=== PATIENT | female | born 1935 | race Caucasian/White ===

== ENCOUNTER 2016-12-05 | Outpatient (CLI) | payer MEDICARE, OTHER | END 2016-12-05 04:28 | disposition critical access hospital (66) | CPT/HCPCS: A0425; A0427 ==

== ENCOUNTER 2016-12-05 05:06 | Emergency (ER) | payer MEDICARE, OTHER ==
[2016-12-05] MEDS ORDERED: BENZONATATE 100 MG CAPSULE PO STA (05:26)
[2016-12-05] MEDS ORDERED: DEXAMETHASONE 10 MG/ML VIAL PO STA (05:26)
[2016-12-05] MEDS ORDERED: ALBUTEROL NEB 2.5 MG/3 ML INH STA ×2 (05:26→06:26)
[2016-12-05] MEDS ORDERED: BENZONATATE 100 MG CAPSULE PO ONE (05:30)
[2016-12-05] MEDS ORDERED: CHERRY SYRUP 10 ML UDC PO ONE (05:35)
[2016-12-05] MEDS ORDERED: DEXAMETHASONE 10 MG/ML VIAL ONE (05:35)
[2016-12-05] MEDS ORDERED: ALBUTEROL NEB 2.5 MG/3 ML INH ONE ×2 (05:36→06:53)
== END 2016-12-05 07:37 | disposition home or self-care (01) ==
DX: J40 Bronchitis, not specified as acute or chronic (principal)
CPT/HCPCS: 71020; 94640; 99284; A9270; J7613

== ENCOUNTER 2017-05-10 13:01 | Outpatient (CLI) | payer MEDICARE, OTHER ==
--- NOTE | 2017-05-11 09:16 | DEXA Report ---
DEXA SCAN: 05/10/2017 CLINICAL INDICATION: Postmenopausal. TECHNIQUE: Dual energy x-ray absorptiometry (DXA) was performed on a [employer] system. Regions measured are the AP spine, femoral neck, and, if needed, forearm. COMPARISON: None. In accordance with the International Society for Clinical Densitometry (ISCD) guidelines, data from previous exams may be reanalyzed us/ ing current recommendations and techniques. This is done to allow a more accurate basis for comparison with the current study. FINDINGS: The data for the lumbar spine is as follows: REGION BMD (g/cm/cm) T-SCORE Z-SCORE L1 0.990 -1.2 0.8 L2 1.022 -1.5 0.4 L3 1.033 -1.4 0.5 L4 1.336 1.1 3.1 TOTAL 1.120 -0.5 1.4 NOTE: All evaluable vertebrae are used for classification. The data for the hip is as follows: REGION BMD (g/cm/cm) T-SCORE Z-SCORE Neck 0.706 -2.4 -0.1 TOTAL 0.728 -2.2 0.0 NOTE: The femoral neck or total proximal femur, whichever is lowest, is used for classification. IMPRESSION: THE WHO CLASSIFICATION BASED ON THE INTERNATIONAL REFERENCE STANDARD IS OSTEOPENIA. FRACTURE RISK IS INCREASED. RECOMMENDATION: Patients with diagnosis of osteoporosis or osteopenia should have regular bone mineral density assessment. For those eligible for Medicare, routine testing is allowed once every 2 years. Testing frequency can be increased for patients who have rapidly progressing disease or for those who are receiving medical therapy to restore bone mass. COMMENT: World Health Organization (WHO) definitions for osteoporosis and osteopenia: NORMAL BMD: T-score at -1.0 or higher, fracture risk is low. OSTEOPENIA BMD: T-score between -1.0 and -2.5, fracture risk is increased. OSTEOPOROSIS BMD: T-score at -2.5 or lower, fracture risk high. National Osteoporosis Foundation recommends: 1. Obtain adequate dietary calcium (at least 1200 mg per day) and vitamin D (400 -800 international units per day). 2. Participate, as appropriate, in regular weightbearing and muscle- strengthening exercise. 3. Avoid tobacco use and reduce alcohol and caffeine intake. 4. For more detailed information see the website at www.NOF.org. MTDD
== END 2017-05-10 13:02 | disposition home or self-care (01) ==
LOC: DI 13:01
PROVIDERS: ATTEND Physician Assistant Medical
DX: Z13.820 Encounter for screening for osteoporosis (principal); E55.9 Vitamin D deficiency, unspecified; M85.80 Other specified disorders of bone density and structure, unspecified site; Z78.0 Asymptomatic menopausal state
CPT/HCPCS: 77080

== ENCOUNTER 2017-09-24 11:07 | Outpatient (CLI) | payer MEDICARE, OTHER ==
[2017-09-24 18:38] LABS: EOSINOPHILS # (AUTO) 0.2 10^3/uL (0.0-0.7); EOSINOPHILS % (AUTO) 3.6 %; HGB - HEMOGLOBIN 14.3 g/dL (12.0-16.0); LYMPHOCYTES # (AUTO) 1.5 10^3/uL (1.5-3.5); LYMPHOCYTES % (AUTO) 32.1 %; MEAN CORPUSCULAR HEMOGLOBIN 31.1 pg (27.0-31.0); MEAN CORPUSCULAR HGB CONC 32.6 g/dL (32.0-36.0); MEAN CORPUSCULAR VOLUME 95.6 fL (81.0-99.0); MEAN PLATELET VOLUME 8.7 fL (7.9-10.8); MONOCYTES # (AUTO) 0.6 10^3/uL (0.0-1.0); MONOCYTES % (AUTO) 12.2 %; NEUTROPHILS # (AUTO) 2.4 10^3/uL (1.5-6.6); NEUTROPHILS % (AUTO) 51.1 %; UNCORRECTED WHITE BLOOD COUNT 4.6 x10^3/uL; WHITE BLOOD COUNT 4.6 x10^3/uL (4.8-10.8)
[2017-09-24 18:57] LABS: ALBUMIN/GLOBULIN RATIO 1.2 (1.0-2.2); BILIRUBIN,TOTAL 0.7 mg/dL (0.2-1.0); BUN - BLOOD UREA NITROGEN 21 mg/dL (6-20); CALCIUM 9.7 mg/dL (8.5-10.3); CARBON DIOXIDE - CO2 28 mmol/L (21-32); CHLORIDE 95 mmol/L (101-111); CHOL/HDL RATIO 1.7 (<4.4); CHOLESTEROL 171 mg/dL; CREATININE 0.9 mg/dL (0.4-1.0); GFR - MDRD 60 (>89); GLUCOSE 92 mg/dL (70-100); HDL CHOLESTEROL 103 mg/dL; LDL/HDL RATIO 0.6 (<4.4); POTASSIUM 4.3 mmol/L (3.5-5.0); SODIUM 133 mmol/L (135-145); TOTAL PROTEIN 7.4 g/dL (6.7-8.2); TRIGLYCERIDES 51 mg/dL; VLDL CHOLESTEROL 10 mg/dL
== END 2017-09-24 11:08 | disposition home or self-care (01) ==
LOC: LAB.F 11:07
PROVIDERS: ATTEND Family Medicine
DX: I10 Essential (primary) hypertension (principal); M85.80 Other specified disorders of bone density and structure, unspecified site; E55.9 Vitamin D deficiency, unspecified; M25.473 Effusion, unspecified ankle
CPT/HCPCS: 36415; 80053; 80061; 82306; 84443; 85025

== ENCOUNTER 2019-03-01 03:35 | Outpatient (CLI) | payer MEDICARE, OTHER | END 2019-03-01 03:36 | disposition critical access hospital (66) | LOC: EMS 03:35 | PROVIDERS: ATTEND Surgery | DX: R10.9 Unspecified abdominal pain (principal); R11.0 Nausea | CPT/HCPCS: A0425; A0427 ==

== ENCOUNTER 2019-03-01 04:16 | Inpatient (IN) | payer MEDICARE, OTHER ==
--- NOTE | 2019-03-01 04:15 | ED Physician Documentation ---
PD HPI ABD PAIN - Stated complaint Stated Complaint: ABD PAIN - History obtained from History obtained from: Patient, EMS - History of Present Illness Timing - onset: Enter time (22:00), Yesterday Timing - duration: Hours Timing - details: Gradual onset, Waxing and waning Pain level now: 5 Quality: Pain Location: LLQ (diffuse but predominantly LLQ) Radiation: Other (no radiation) Improved by: Other (no ameliorating factors) Worsened by: Other (no exacerbating factors) Associated symptoms: Nausea, Vomiting. No: Fever, Diarrhea, Constipation (last BM was yesterday, but small amount) Similar symptoms before: Has not had sx before Recently seen: Not recently seen - Additional information Additional information: BIBA, given zofran en route without significant improvement. c/o waxing and waning abdominal pain with increasing nausea and vomiting ("dry heaves", per patient) Review of Systems Constitutional: reports: Reviewed and negative Eyes: reports: Reviewed and negative Ears: reports: Reviewed and negative Nose: reports: Reviewed and negative Throat: reports: Reviewed and negative Cardiac: reports: Reviewed and negative Respiratory: reports: Reviewed and negative GI: reports: Abdominal Pain, Nausea, Vomiting. denies: Constipation, Diarrhea : denies: Dysuria, Frequency Skin: reports: Reviewed and negative Musculoskeletal: reports: Reviewed and negative Neurologic: reports: Reviewed and negative PD PAST MEDICAL HISTORY - Past Medical History Past Medical History: Yes Cardiovascular: Hypertension - Past Surgical History Past Surgical History: Yes General: Appendectomy (patient was having oophorectomy for ovarian cyst, jae shepard removed during this procedure) - Present Medications Home Medications: Ambulatory Orders Medication Instructions Recorded Confirmed Aspirin [Aspirin EC] 81 mg PO DAILY 03/01/19 03/01/19 Losartan Potassium 100 mg PO DAILY 03/01/19 03/01/19 Metoclopramide [Reglan] 10 mg PO Q6H 5 Days #20 tablet 03/01/19 Wheat Dextrin [Benefiber] 1 each PO DAILY #30 powd.pack 03/01/19 - Allergies Allergies/Adverse Reactions: Allergies Allergy/AdvReac Type Severity Reaction Status Date / Time Penicillins Allergy Unknown Verified 03/01/19 04:27 - Living Situation Living Situation: reports: With spouse/s.o. Living Arrangement: reports: At home - Social History Does the pt smoke?: No PD ED PE NORMAL - Vitals Vital signs reviewed: Yes - General General: Alert and oriented X 3, No acute distress, Well developed/nourished - Neck Neck: Supple, no meningeal sign - Cardiac Cardiac: RRR, No murmur - Respiratory Respiratory: No respiratory distress, Clear bilaterally - Abdomen Abdomen: Normal bowel sounds, Soft, Non distended, Other (mild LLQ tenderness without guarding or rebound) - Back Back: No CVA TTP - Derm Derm: Normal color, Warm and dry - Extremities Extremities: No edema - Neuro Neuro: Alert and oriented X 3 Results - Vitals Vitals: Vital Signs - 24 hr 03/01/19 03/01/19 03/01/19 04:22 04:33 05:44 Temperature 37.2 C Heart Rate 74 75 80 Respiratory 17 17 17 Rate Blood Pressure 156/89 H 138/84 H 165/94 H O2 Saturation 96 94 100 03/01/19 03/01/19 06:15 07:13 Temperature Heart Rate 97 95 Respiratory 17 Rate Blood Pressure 168/99 H 111/96 H O2 Saturation 97 94 Oxygen O2 Source Room air - Labs Labs: Laboratory Tests 03/01/19 03/01/19 03/01/19 04:45 04:45 07:00 WBC 9.7 RBC 4.31 Hgb 13.5 Hct 40.9 MCV 94.9 MCH 31.2 H MCHC 32.9 RDW 13.5 Plt Count 305 MPV 7.3 L Neut # (Auto) 8.1 H Lymph # (Auto) 0.8 L Guthrie # (Auto) 0.7 Eos # (Auto) 0.0 Baso # (Auto) 0.0 Absolute Nucleated RBC 0.01 Nucleated RBC % 0.1 Sodium 135 Potassium 4.0 Chloride 99 L Carbon Dioxide 28 Anion Gap 8.0 BUN 23 H Creatinine 0.7 Estimated GFR (MDRD) 80 L Glucose 134 H Calcium 9.5 Total Bilirubin 0.6 AST 21 ALT 12 Alkaline Phosphatase 45 Total Protein 6.5 L Albumin 3.9 Globulin 2.6 Albumin/Globulin Ratio 1.5 Lipase 50 Urine Color YELLOW Urine Clarity CLEAR Urine pH 6.[address] 1[address]010 Urine Protein NEGATIVE Urine Glucose (UA) NEGATIVE Urine Ketones NEGATIVE Urine Occult Blood NEGATIVE Urine Nitrite NEGATIVE Urine Bilirubin NEGATIVE Urine Urobilinogen 0.2 (NORMAL) Ur Leukocyte Esterase NEGATIVE Ur Microscopic Review NOT INDICATED Urine Culture Comments NOT INDICATED - Rads (name of study) CT A/P Radiology: Prelim report reviewed, See rad report PD MEDICAL DECISION MAKING - ED course Complexity details: reviewed results, re-evaluated patient, considered differential, d/w patient ED course: D/W Dr. Wilson, recommends admit to hospitalist Departure - Departure Disposition: 66 [facility] DC/Xfer Clinical Impression: Small bowel obstruction Condition: Good Discharge Date/Time: 03/01/19 09:46
[2019-03-01] MEDS ORDERED: SODIUM CHLORIDE 0.9% 500 ML IV STA (04:31)
[2019-03-01] MEDS ORDERED: ONDANSETRON 4 MG/2 ML VIAL IVP STA (04:31)
[2019-03-01] MEDS ORDERED: IOVERSOL 320 50 ML VIAL ONE (04:46)
[2019-03-01] MEDS ORDERED: IOVERSOL 320 100 ML VIAL IVP ONE ×2 (04:47→06:21)
[2019-03-01 04:53] LABS: BASOPHILS % (AUTO) 0.5 %; EOSINOPHILS % (AUTO) 0.5 %; HGB - HEMOGLOBIN 13.5 g/dL (12.0-16.0); LYMPHOCYTES # (AUTO) 0.8 10^3/uL (1.5-3.5); LYMPHOCYTES % (AUTO) 8.4 %; MEAN CORPUSCULAR HEMOGLOBIN 31.2 pg (27.0-31.0); MEAN CORPUSCULAR HGB CONC 32.9 g/dL (32.0-36.0); MEAN CORPUSCULAR VOLUME 94.9 fL (81.0-99.0); MEAN PLATELET VOLUME 7.3 fL (7.9-10.8); MONOCYTES # (AUTO) 0.7 10^3/uL (0.0-1.0); MONOCYTES % (AUTO) 6.8 %; NEUTROPHILS # (AUTO) 8.1 10^3/uL (1.5-6.6); NEUTROPHILS % (AUTO) 83.8 %; PLT - PLATELET COUNT 305 10^3/uL (130-450); RED BLOOD COUNT 4.31 10^6/uL (4.20-5.40); RED CELL DISTRIBUTION WIDTH 13.5 % (12.0-15.0); WHITE BLOOD COUNT 9.7 x10^3/uL (4.8-10.8)
[2019-03-01] MEDS ORDERED: PROMETHAZINE INJ 12.5 MG in SODIUM CHLORIDE 0.9% 50 ML IV STA ×2 (05:00→08:01)
[2019-03-01 05:04] LABS: ALBUMIN 3.9 g/dL (3.2-5.5); ALBUMIN/GLOBULIN RATIO 1.5 (1.0-2.2); BILIRUBIN,TOTAL 0.6 mg/dL (0.2-1.0); CALCIUM 9.5 mg/dL (8.5-10.3); CREATININE 0.7 mg/dL (0.4-1.0); TOTAL PROTEIN 6.5 g/dL (6.7-8.2)
[2019-03-01] MEDS ORDERED: IOVERSOL 320 50 ML VIAL PO ONE (06:25)
--- NOTE | 2019-03-01 06:39 | CT Report ---
Reason: abd. pain Procedure Date: 03/01/2019 Accession Number: [id number] / [id number] Procedure: CT - Abdomen/Pelvis W CPT Code: FULL RESULT: EXAM: CT ABDOMEN AND PELVIS EXAM DATE: 03/01/2019 06:04 AM. CLINICAL HISTORY: Abdominal pain and nausea. COMPARISONS: None. TECHNIQUE: Routine helical CT imaging was performed through the abdomen and pelvis. IV contrast: 100 ML OPTIRAY 320. Enteric contrast: Yes. Reconstructions: Coronal and sagittal. In accordance with CT protocol optimization, one or more of the following dose reduction techniques were utilized for this exam: automated exposure control, adjustment of mA and/or KV based on patient size, or use of iterative reconstructive technique. FINDINGS: Lung Bases: Bibasilar atelectasis. Mild cardiomegaly. Possible emphysema. Liver: Fatty infiltration. Gallbladder/Bile Ducts: Unremarkable. Spleen: Normal. Pancreas: Normal. Adrenal Glands: Normal. Kidneys: Normal. No masses or hydronephrosis. Peritoneal Cavity/Bowel: Small bowel obstruction. Transition appears to be in the pelvis just to the right of midline. Small amount of free fluid. No free air. Moderate stool in the colon, right greater than left. No diverticulitis. No lymphadenopathy. No evidence of appendicitis. Pelvic Organs: Normal. The bladder and visualized pelvic organs are within normal limits. Vasculature: Mild atherosclerosis. No aortic aneurysm. Bones: Osteopenia. Degenerative changes and scoliosis in the spine. Other: None. IMPRESSION: 1. Small bowel obstruction. Transition appears to be in the pelvis. 2. Small amount of free fluid. No free air. 3. No acute inflammatory process identified in the abdomen or pelvis. RADIA
[2019-03-01 07:18] LABS: BILIRUBIN,URINE NEGATIVE (NEGATIVE); GLUCOSE, URINE (UA) NEGATIVE (NEGATIVE); KETONES,URINE (UA) NEGATIVE (NEGATIVE); LEUKOCYTE ESTERASE, URINE NEGATIVE (NEGATIVE); NITRITE,URINE NEGATIVE (NEGATIVE); OCCULT BLOOD,URINE NEGATIVE (NEGATIVE); PROTEIN,URINE NEGATIVE (NEGATIVE); UROBILINOGEN,URINE 0.2 (NORMAL) E.U./dL (NORMAL)
[2019-03-01 07:19] LABS: CLARITY,URINE CLEAR (CLEAR)
[2019-03-01] MEDS ORDERED: SODIUM CHLORIDE 0.9% 1,000 ML IV STA (07:39)
[2019-03-01] MEDS ORDERED: SODIUM CHLORIDE FLUSH 0.9% 10 ML SYRINGE IVP PRN (08:38)
[2019-03-01] MEDS ORDERED: TEMAZEPAM 15 MG CAPSULE PO PRN (08:38)
--- NOTE | 2019-03-01 08:49 | HISTORY & PHYSICAL EXAMINATION ---
Chief Complaint - Chief Complaint Chief Complaint: rectal pain, nausea History of Present Illness - Admitted From Admitted From:: ED - History Obtained From Records Reviewed: yes History obtained from: patient, chart review Exam Limitations: AMS, pain medications - History of Present Illness HPI Comment/Other: Gaby Andino is a high functioning 83-year old with a past medical history of hypertension, BLE edema, ovarian cysts, thyroid duct removal, osteopenia, varicose vein stripping and short term memory loss. She presented to the ED via ambulance after developing acute onset rectal pain and LLQ pain, with nausea, and vomiting. She states that for the past several days she had only mild intermittent nausea, but continued to eat normally. She states that after having a [place] yogurt yesterday, she really noticed her nausea and woke up this morning with her symptoms listed above. Labs showed a normal WBC count of 9.7, H/H of 13.5/40.9, elevated neutrophil # of 8.1, sodium of 135, potassium of 4.0, chloride of 99, BUN of 23, creatinine of 0.7, GFR of 80, glucose of 134, with no other lab abnormalities. Vital signs showed a temp of 37.2, heart rate of 74, respiratory rate of 17, blood pressure of 156/89, and oxygen of 96% on room air. On my initial exam, she is lethargic since being treated for her acute nausea with IV phenergen, but remained a good historian. She denied bleeding, confusion, recent sick contacts, recent illness, dizziness, chest pain, a new headache, blurred vision, or a new cough. General surgery was consulted, Dr. Wilson who will give recommendations and agrees with a Gastro-graffin challenge with follow up imaging. History - Past Medical History Cardiovascular: reports: Hypertension Respiratory: reports: None Neuro: reports: None Endocrine/Autoimmune: reports: None GI: reports: None ASSURANCE ASSISTANT: reports: Ovarian cysts : reports: Nocturia, Frequency HEENT: reports: Chronic vision loss, Chronic hearing loss Psych: reports: None Musculoskeletal: reports: Osteoarthritis, Scoliosis Derm: reports: None, Other MRSA Hx?: No Other Past Medical History: Hyponatremia - Past Surgical History General: reports: Cholecystectomy, Appendectomy (patient was having oophorectomy for ovarian cyst, appendix removed during this procedure) Ortho: reports: Other /ASSURANCE ASSISTANT: reports: Oophrectomy, Other Other past surgical history: Bunionectomy, lipomectomy, vein stripping, ovarian cyst removals, thyroglossal duct removal - Family & Social History Family History: Mother: , Cancer (colon cancer- Mother), Father: , Brother: , CAD Family History Comment/Other: Mother- colon CA, brother with CAD, and father of old age after having pneumonia. Living arrangement: At home Living Situation: With spouse/s.o. Social History Notes: The patient is and lives with her , Anupam who is no longer allowed to drive since suffering a stroke. They live independently in [place]. She is his sole foster care therapist. They had 3 children, only one living. Their oldest son lives in [place], [place]. The patient is a retired payroll accountant, who lived in [place], but in [place] since 2008. She enjoys housework, yard work and still drives. She denies the use of tobacco or illicit drugs. She admits to drinking 2 glasses of wine per day. She admits to the use of essential oils, peppermint oils and the downward dog position for most of her medical aliments. She wishes to be a FULL code. - Substance History Use: Uses substance without health or social issues: NONE Abuse: Recurrent use of substance despite neg consequences: NONE Dependence: Experiences withdrawal or developed tolerances: NONE - POLST Patient has POLST: No POLST Status: Full Code Meds/Allgy - Home Medications Home Medications: Ambulatory Orders Medication Instructions Recorded Confirmed Aspirin [Aspirin EC] 81 mg PO DAILY 03/01/19 03/01/19 Losartan Potassium 100 mg PO DAILY 03/01/19 03/01/19 - Allergies Allergies/Adverse Reactions: Allergies Allergy/AdvReac Type Severity Reaction Status Date / Time Penicillins Allergy Unknown Verified 03/01/19 04:27 Review of Systems - Constitutional Constitutional: reports: Fatigue, Weakness, Poor appetite - Eyes Eyes: reports: Vision loss - Cardiovascular Cariovascular: reports: Lightheadedness, Decr. exercise tolerance - Gastrointestinal Gastrointestinal: reports: Abdominal pain, Abdominal distention, Change in bowel habits, Nausea, Vomiting, Reflux/heartburn, Bloating, Poor appetite - Genitourinary Genitourinary: reports: Frequency, Nocturia - Musculoskeletal Musculoskeletal: reports: Muscle aches - Integumentary Integumentary: reports: Dryness - Neurological Neurological: reports: General weakness, Memory problems, Pre-existing deficit - All Other Systems All Other Systems: reports: Reviewed and negative Prior Level of Functionality: Independent, takes care of her profoundly demented . The patient does not use a walker, or a cane, no recent falls. Exam - Vital Signs Reviewed Vital Signs: Yes Vital Signs: Vital Signs x48h Temp Pulse Resp BP Pulse Ox 03/01/19 07:13 95 111/96 H 94 03/01/19 06:15 97 17 168/99 H 97 03/01/19 05:44 80 17 165/94 H 100 03/01/19 04:33 75 17 138/84 H 94 03/01/19 04:22 37.2 C 74 17 156/89 H 96 - Physical Exam General Appearance: positive: Mild distress, Lethargic Eyes Bilateral: positive: PERRL ENT: positive: Pharynx nml, Dry mucous membranes Neck: positive: Thyroid nml, No JVD, Trachea midline Respiratory: positive: Chest non-tender, No respiratory distress, Other (bilateral crackles in low lobes) Cardiovascular: positive: No gallop, Irregularly irregular, Systolic murmur, Decreased pulse(s) Peripheral Pulses: positive: 1+ Abdomen: positive: Tenderness, Guarding, Abnml bowel sounds Back: positive: Nml inspection Skin: positive: Color nml, No rash, Warm, Dry Extremities: positive: Non-tender, Full ROM, Pedal edema (trace), Joint swelling Neurologic/Psychiatric: positive: Oriented x3, CN's nml (2-12), Motor nml, Sensation nml, Mood/affect nml Reflexes: Bicep (R): 3+, Bicep (L): 3+ Conclusion/Plan - Problem List (1) Small bowel obstruction Conclusion/Plan: - Imaging in the ED confirms a SBO - IVFs, anti-emetics, and bowel rest - Administer gastro-graffin x1 - General surgery consult Plan: Continue cares, clear liquid diet, evaluate follow up imaging (2) Intractable nausea and vomiting Conclusion/Plan: - Continued nausea and dry heaves on initial exam Plan: Continue with zofran, compazine if needed (3) Hypertension Conclusion/Plan: - Patient takes losartan at home - Blood pressures elevated at 150/80's, presumed due to pain Plan: Continue to monitor Qualifiers: Hypertension type: essential hypertension Qualified Code(s): I10 - Anny huber (primary) hypertension (4) Medical non-compliance Conclusion/Plan: - Patient states that she mostly uses essential oils, and the down haq dog yoga position to cure her medical aliments - Prescribed Losartan at home, but states that sometimes, she takes "breaks" from using it Plan: Continue to encourage patient to care for herself, take medications as prescribed (5) Rectal pain Conclusion/Plan: - Primary complaint on exam - NO external hemorrhoids appreciated Plan: Continue to treat acute illness - Lab Results Lab results reviewed: Yes Fish Bones: 03/01/19 04:45 03/01/19 04:45 - Diagnostic Imaging Results Diagnostic Imaging Results: positive: Prelim report reviewed Diagnostic Imaging Results Comments: EXAM: CT ABDOMEN AND PELVIS EXAM DATE: 03/01/2019 06:04 AM FINDINGS: Lung Bases: Bibasilar atelectasis. Mild cardiomegaly. Possible emphysema. Liver: Fatty infiltration. Gallbladder/Bile Ducts: Unremarkable. Spleen: Normal. Pancreas: Normal. Adrenal Glands: Normal. Kidneys: Normal. No masses or hydronephrosis. Peritoneal Cavity/Bowel: Small bowel obstruction. Transition appears to be in the pelvis just to the right of midline. Small amount of free fluid. No free air. Moderate stool in the colon, right greater than left. No diverticulitis. No lymphadenopathy. No evidence of appendicitis. Pelvic Organs: Normal. The bladder and visualized pelvic organs are within normal limits. Vasculature: Mild atherosclerosis. No aortic aneurysm. Bones: Osteopenia. Degenerative changes and scoliosis in the spine. Other: None. IMPRESSION: 1. Small bowel obstruction. Transition appears to be in the pelvis. 2. Small amount of free fluid. No free air. 3. No acute inflammatory process identified in the abdomen or pelvis. Core Measures - Anticipated LOS I expect patient to be DC'd or transferred within 96 hours.: Yes - DVT/VTE - Prophylaxis VTE/DVT Device ordered at admit?: Yes VTE/DVT Prophylaxis med ordered at admit?: Yes - Stroke - Rehab Assessment Rehab services assessment to be ordered?: No Not Ordered - Medical Reason: Contraindicated - AMI - Statin at Admit Aspirin Prescribed on Admit: No Not Ordered - Medical Reason: Contraindicated
[2019-03-01] MEDS ORDERED: DIATR MEGLU/DIATRIZOATE SODIUM 120 ML BOTTLE PO ONE (08:51)
[2019-03-01] MEDS ORDERED: BACITRACIN OINT TOP ONE (08:59)
[2019-03-01] MEDS ORDERED: SODIUM CHLORIDE 0.9% 1,000 ML IV SCH (09:00)
[2019-03-01] MEDS ORDERED: ENOXAPARIN 40 MG/0.4 ML SYRINGE SUBQ SCH (09:00)
[2019-03-01] MEDS ORDERED: POLYETHYLENE GLYCOL 3350 17 GM PACKET PO SCH (09:00)
[2019-03-01] MEDS ORDERED: ONDANSETRON 4 MG/2 ML VIAL IVP PRN (09:16)
[2019-03-01] MEDS: SODIUM CHLORIDE FLUSH 0.9% 10 ML SYRINGE IVP SCH ×2 (09:53→17:35)
[2019-03-01 15:46] VITALS: BP 150/82
--- NOTE | 2019-03-01 15:50 | XRAY Report ---
Reason: SBO Procedure Date: 03/01/2019 Accession Number: [id number] / [id number] Procedure: XR - SBFT Challenge Panel CPT Code: FULL RESULT: EXAM: ABDOMEN RADIOGRAPHY EXAM DATE: 03/01/2019 11:38 AM. CLINICAL HISTORY: SBO. COMPARISON: ABDOMEN/PELVIS W/ 03/01/2019 6:04 AM. TECHNIQUE: 1 view. FINDINGS: Bowel Gas Pattern: Gastrograffin seen within the stomach and multiple bowel loops, unclear whether within colon. Air-fluid levels within small bowel loops in the right and mid upper abdomen. Other: None. IMPRESSION: Air-fluid levels suggestive of at least partial small bowel obstruction. However it is noted by the radiology teacher that patient was currently passing stool at the time of scheduled follow up radiograph and therefore repeat radiographs were not obtained. RADIA
--- NOTE | 2019-03-01 17:00 | Discharge Plan ---
Discharge Plan Disposition: 01 Home, Self Care Condition: Good Prescriptions: Metoclopramide [Reglan] 10 mg PO Q6H 5 Days #20 tablet Wheat Dextrin [Benefiber] 1 each PO DAILY #30 powd.pack Diet: Regular Activity Restrictions: No Restrictions Shower Restrictions: No Driving Restrictions: No Weight Bearing: Full Weight Additional Instructions or Follow Up instructions: You were admitted for a bowel obstruction that resolved with one dose of gastro- graffin. Please take Reglan to keep your bowels active, and drink a daily benefiber. Both of these have been sent to the pharmacy. Please eat soft foods for the next few days and stay active. Please see Nola Lebron next week as planned, or within one week. No Smoking: If you smoke, Please STOP! Call for help. Follow-up with: Nola Lebron PA-C [Primary Care Provider] -
--- NOTE | 2019-03-01 18:56 | DISCHARGE SUMMARY ---
"Discharge Summary Admit Date: 03/01/19 Discharge Date: 03/01/19 Discharging Provider: FELTON Faustin Primary Care Provider: Nola Lebron Code Status: Attempt Resuscitation Condition at Discharge: Good Discharge Disposition: 01 Home, Self Care - DIAGNOSES Admission Diagnoses: Unsp intestnl obst, unsp as to partial versus complete obst (K56.609) Nausea with vomiting, unspecified (R11.2) Essential (primary) hypertension (I10) Patient's noncompliance w oth medical treatment and regimen (Z91.19) Other specified diseases of anus and rectum (K62.89) Discharge Diagnoses with Status of Each Condition: Unsp intestnl obst, unsp as to partial versus complete obst (K56.609) resolved after one dose of gastro-grafin, patient tolerating PO intake prior to discharge Nausea with vomiting, unspecified (R11.2) resolved, continue Reglan at home for the next 5 days Essential (primary) hypertension (I10) chronic, stable, patient encouraged to keep taking this Patient's noncompliance w oth medical treatment and regimen (Z91.19) chronic, stable Other specified diseases of anus and rectum (K62.89) resolved, likely related to SBO - HPI History of Present Illness: Gaby Andino is a high functioning 83-year old with a past medical history of hypertension, BLE edema, ovarian cysts, thyroid duct removal, osteopenia, varicose vein stripping and short term memory loss. She presented to the ED via ambulance after developing acute onset rectal pain and LLQ pain, with nausea, and vomiting. She states that for the past several days she had only mild intermittent nausea, but continued to eat normally. She states that after having a [place] yogurt yesterday, she really noticed her nausea and woke up this morning with her symptoms listed above. Labs showed a normal WBC count of 9.7, H/H of 13.5/40.9, elevated neutrophil # of 8.1, sodium of 135, potassium of 4.0, chloride of 99, BUN of 23, creatinine of 0.7, GFR of 80, glucose of 134, with no other lab abnormalities. Vital signs showed a temp of 37.2, heart rate of 74, respiratory rate of 17, blood pressure of 156/89, and oxygen of 96% on room air. On my initial exam, she is lethargic since being treated for her acute nausea with IV phenergen, but remained a good historian. She denied bleeding, confusion, recent sick contacts, recent illness, dizziness, chest pain, a new headache, blurred vision, or a new cough. General surgery was consulted, Dr. Wilson who will give recommendations and agrees with a Gastro-graffin alex morejon with follow up imaging. - CONSULTS | PROCEDURES Consultations: General surgery- Dr. Wilson Procedures: Gastro-grafin challenge x1 - HOSPITAL COURSE Hospital Course: After the patient consumed her gastro-grafin orally, she had large results within a few hours that woke her up, and caused her to defecate all over her hospital room. She had a resolution of her abdominal pain, and was tolerating a meal. She is to follow up with her PCP. - ALLERGIES Allergies/Adverse Reactions: Allergies Allergy/AdvReac Type Severity Reaction Status Date / Time Penicillins Allergy Unknown Verified 03/01/19 04:27 - MEDICATIONS Home Medications: Ambulatory Orders Medication Instructions Recorded Confirmed Aspirin [Aspirin EC] 81 mg PO DAILY 03/01/19 03/01/19 Losartan Potassium 100 mg PO DAILY 03/01/19 03/01/19 Metoclopramide [Reglan] 10 mg PO Q6H 5 Days #20 tablet 03/01/19 Wheat Dextrin [Benefiber] 1 each PO DAILY #30 powd.pack 03/01/19 - PHYSICAL EXAM AT DISCHARGE General Appearance: positive: No acute distress, Alert Eyes Bilateral: positive: Normal inspection, PERRL ENT: positive: ENT inspection nml, Pharynx nml, No signs of dehydration Neck: positive: Nml inspection, Thyroid nml, No JVD, Trachea midline Respiratory: positive: Chest non-tender, No respiratory distress, Breath sounds nml Cardiovascular: positive: Regular rate & rhythm, No gallop, Systolic murmur Peripheral Pulses: positive: 2+ Abdomen: positive: Non-tender, Nml bowel sounds, Other (rounded, soft) Back: positive: Nml inspection Skin: positive: Color nml, No rash, Warm, Dry Extremities: positive: Non-tender, Full ROM, Nml appearance Neurologic/Psychiatric: positive: Oriented x3, CN's nml (2-12), Motor nml, Sensation nml, Mood/affect nml Reflexes: Bicep (R): 3+, Bicep (L): 3+ - LABS Result Diagrams: 03/01/19 04:45 03/01/19 04:45 - DIAGNOSTIC IMAGING Diagnostic Imaging Results: Final report reviewed Diagnostic Imaging Results Comments: EXAM: CT ABDOMEN AND PELVIS EXAM DATE: 03/01/2019 06:04 AM IMPRESSION: 1. Small bowel obstruction. Transition appears to be in the pelvis. 2. Small amount of free fluid. No free air. 3. No acute inflammatory process identified in the abdomen or pelvis. EXAM: ABDOMEN RADIOGRAPHY EXAM DATE: 03/01/2019 11:38 AM IMPRESSION: Air-fluid levels suggestive of at least partial small bowel obstruction. However it is noted by the lead cytogenetic technologist that patient was currently passing stool at the time of scheduled follow up radiograph and therefore repeat radiographs were not obtained. - FOLLOW UP Follow Up: Disposition: Home, Self Care Condition: Good Prescriptions: Metoclopramide [Reglan] 10 mg PO Q6H 5 Days #20 tablet Wheat Dextrin [Benefiber] 1 each PO DAILY #30 powd.pack Diet: Regular Additional Instructions or Follow Up instructions: You were admitted for a bowel obstruction that resolved with one dose of gastro-graffin. Please take Reglan to keep your bowels active, and drink a daily benefiber. Both of these have been sent to the pharmacy. Please eat soft foods for the next few days and stay active. Please see Nola Lebron next week as planned, or within one week. - TIME SPENT Time Spent in Discharge (Minutes): 50"
--- NOTE | 2019-03-01 19:00 | ADVANCE CARE PLANNING NOTE ---
Advance Care Planning - Date/Time Date: 03/01/19 Time: 16:00 - Purpose of encounter Text: Establish goals of care, confirm code status - Parties in attendance Parties in attendance: The patient- Gaby Andino, her - Anupam, and myself- FELTON Faustin - Decisional capacity Decisional capacity of: Patient is a good historian and fully decisional. - Subjective/Patient's story Subjective/Patient's story: The patient wishes for us to make all efforts in resuscitation and answered yes to all for modalities in resuscitation efforts; do want CPR- YES, do you want shocking- YES, do you want cardiac medications- YES, and do you want intubation- YES. She feels very responsible for her severely demented who has suffered a life altering stroke. He continues to need 24 hour care and supervision. He falls frequently and the patient would "not be able to live" with her self if anything happened. She does not want to rely on her friends or family for any cares. She wishes to remain a FULL code. - Objective/Medical story Objective/Medical Story: Gaby Andino is a high functioning 83-year old with a past medical history of hypertension, BLE edema, ovarian cysts, thyroid duct removal, osteopenia, varicose vein stripping and short term memory loss. She presented to the ED via ambulance after developing acute onset rectal pain and LLQ pain, with nausea, and vomiting. She states that for the past several days she had only mild intermittent nausea, but continued to eat normally. She states that after having a [place] yogurt yesterday, she really noticed her nausea and woke up this morning with her symptoms listed above. Labs showed a normal WBC count of 9.7, H/H of 13.5/40.9, elevated neutrophil # of 8.1, sodium of 135, potassium of 4.0, chloride of 99, BUN of 23, creatinine of 0.7, GFR of 80, glucose of 134, with no other lab abnormalities. Vital signs showed a temp of 37.2, heart rate of 74, respiratory rate of 17, blood pressure of 156/89, and oxygen of 96% on room air. On my initial exam, she is lethargic since being treated for her acute nausea with IV phenergen, but remained a good historian. She denied bleeding, confusion, recent sick contacts, recent illness, dizziness, chest pain, a new headache, blurred vision, or a new cough. General surgery was consulted, Dr. Wilson who will give recommendations and agrees with a Gastro-graffin challenge with follow up imaging. *Advanced care planning was discussed to clarify the quality of life after a devastating event such as cardiac arrest and the rehabilitation that may be required. - Goals of Care Goals of care determinations: It is not expected that the patient will suffer a life altering event during this hospital stay. She has been tolerating her gastro-grafin contrast so far. Sudden , a stroke, a heart attack, a fall with injury may alter her plan of care. - Plan Plan: Continue to treat acute illness - Code Status Code Status: Attempt Resuscitation - Time Spent on Advance Care Planning Time spent on advance care plannin
[2019-03-02] MEDS ORDERED: PANTOPRAZOLE 40 MG VIAL IVP SCH (07:00)
== END 2019-03-01 18:45 | disposition home or self-care (01) | DRG 390 ==
LOC: EDUNIT# → ED 04:16 → MS2 08:38
PROVIDERS: ADMIT Nurse Practitioner; ATTEND Nurse Practitioner
DX: K56.609 Unspecified intestinal obstruction, unspecified as to partial versus complete obstruction (principal); K62.89 Other specified diseases of anus and rectum; I10 Essential (primary) hypertension; Z79.82 Long term (current) use of aspirin; Z79.899 Other long term (current) drug therapy; Z90.49 Acquired absence of other specified parts of digestive tract; Z90.721 Acquired absence of ovaries, unilateral; Z80.0 Family history of malignant neoplasm of digestive organs; Z91.14 Patient's other noncompliance with medication regimen
CPT/HCPCS: 36415; 74177; 74250; 80053; 81003; 83690; 85025; 96361; 96365; 96366; 96375; 99284; A9270; J1650; J7040; Q9963; Q9967; 74018; 81001; 87086; 96367

== ENCOUNTER 2019-04-30 11:21 | Outpatient (CLI) | payer MEDICARE, OTHER | END 2019-04-30 11:22 | disposition home or self-care (01) | LOC: DI 11:21 | PROVIDERS: ATTEND Internal Medicine Cardiovascular Disease | DX: R53.83 Other fatigue (principal) | CPT/HCPCS: 93306 ==